=== PATIENT | male | born 1965 | race Caucasian/White ===

== ENCOUNTER → 2017-08-30 | Outpatient (REF) | payer OTHER | LOC: M SFHCLERA 09:56 | DX: J02.9 Acute pharyngitis, unspecified (principal) ==

== ENCOUNTER → 2018-05-29 | Outpatient (CLI) | payer OTHER | LOC: M ONCR 08:40 | DX: C20 Malignant neoplasm of rectum (principal) | CPT/HCPCS: G0463 ==

== ENCOUNTER 2018-06-04 13:38 | Outpatient (RCR) | payer OTHER ==
[2018-06-12 08:25] LABS: HEMATOCRIT 25.9 % (42.0-52.0); HEMOGLOBIN 7.4 g/dl (13.5-17.5); MEAN CORPUSCULAR HGB CONC 28.6 g/dl (32.0-36.5); MEAN CORPUSCULAR VOLUME 84.1 fl (80.0-96.0); PLATELET COUNT, AUTOMATED 417 10^3/uL (150-450); RED BLOOD COUNT 3.08 10^6/uL (4.30-6.10); RED CELL DISTRIBUTION WIDTH 24.3 % (11.5-14.5); WHITE BLOOD COUNT 4.9 10^3/uL (4.0-10.0)
[2018-06-12 13:04] LABS: IMMEDIATE SPIN CROSSMATCH 1 2
== END 2018-06-22 ==
LOC: M ONCR 13:38
DX: C20 Malignant neoplasm of rectum (principal)
CPT/HCPCS: 77300

== ENCOUNTER → 2018-06-12 | Outpatient (CLI) | payer OTHER ==
[~2018-06-12] MED LIST: ACETAMINOPHEN TAB 650MG DOSE (2X325MG) PO SCH; ASPI-156 PO; ATOR40TA75 PO; FERR140T2 PO; FERR1TAB8 PO; FOLI800C PO; METO1TAB87 PO; NITR0.4S14 PO; PANT40TA3 PO; PLAV1TAB2 PO; SENN-23 PO; SILV40CR EXT; diphenhydrAMINE 25 MG CAP PO SCH
== END ==
LOC: M OPP 11:48
PROVIDERS: ATTEND Internal Medicine Medical Oncology
DX: C20 Malignant neoplasm of rectum (principal); D63.8 Anemia in other chronic diseases classified elsewhere
CPT/HCPCS: 36430; P9016

== ENCOUNTER 2018-07-13 07:59 | Outpatient (RCR) | payer OTHER ==
[2018-06-26 08:08] LABS: HEMATOCRIT 34.4 % (37.0-51.0); HEMOGLOBIN 10.7 g/dl (12.0-18.0); LYMPH % 17.2 % (10.0-58.5); MEAN CORPUSCULAR HEMOGLOBIN 26.2 pg (26.0-32.0); MEAN CORPUSCULAR HGB CONC 31.1 g/dl (31.0-36.0); NEUTROPHILS # 3.5 10^3/uL (2.0-7.8); NEUTROPHILS % 74.8 % (37.0-92.0); RED BLOOD COUNT 4.09 10^6/uL (4.2-6.3); WHITE BLOOD COUNT 4.7 10^3/uL (4.1-10.9)
--- NOTE | 2018-06-26 13:56 | RADONC ---
RADIATION ONCOLOGY PROGRESS NOTE DATE: 06/25/2018 CHART NUMBER: [id number] PROGRESS NOTE: Mr. Palm is presently a dose of 1980 cGy to his pelvis and is tolerating his treatments quite well at this point with no significant difficulties related to his radiation therapy other than some perianal discomfort. REVIEW OF SYSTEMS: The patient's review of systems is positive for perianal discomfort but is otherwise noncontributory. Denies nausea, vomiting, fevers, chills, night sweats, diplopia, headaches, anxiety or depression, anorexia, weight loss, visual disturbances, chest pain, urinary or bowel difficulties, bone pain, or neurological problems. PHYSICAL EXAMINATION: The patient's skin is in excellent condition with no evidence of moist or dry desquamation. The remainder of his physical exam remains unchanged. Mr. Palm is tolerating treatments quite well and radiation will continue as scheduled.
--- NOTE | 2018-07-03 10:15 | RADONC ---
RADIATION ONCOLOGY PROGRESS NOTE DATE: 07/03/2018 CHART NUMBER: [id number] Mr. Palm is presently at a dose of 2880 cGy to his pelvis and is tolerating his treatments with some difficulty of perianal discomfort. The patient's review of systems is positive for perianal discomfort but is otherwise noncontributory. He denies nausea, vomiting, fevers, chills, night sweats, diplopia, headaches, anxiety or depression, anorexia, weight loss, visual disturbances, chest pain, urinary or bowel difficulties, bone pain, or neurological problems. PHYSICAL EXAMINATION: The patient's skin overall is in good condition. There is a small area of desquamation along the patient's anus. The remainder of his physical exam remains unchanged. I have given the patient skin care instructions and radiation will continue as scheduled.
--- NOTE | 2018-07-09 15:16 | RADONC ---
RADIATION ONCOLOGY PROGRESS NOTE DATE: 07/09/2018 CHART NUMBER: [id number] Mr. Palm is presently at a dose of 3780 cGy to his pelvis and continues to tolerate treatments with pain and discomfort in the perianal area. He reports that this is no worse than last week. The patient's review of systems is positive for perianal and rectal pain but is otherwise noncontributory. The patient's review of systems is noncontributory. Denies nausea, vomiting, fevers, chills, night sweats, diplopia, headaches, anxiety or depression, anorexia, weight loss, visual disturbances, chest pain, urinary or bowel difficulties, bone pain, or neurological problems. PHYSICAL EXAMINATION The patient's skin overall is in generally good condition except just in the perianal region, which has some desquamation. The remainder of his physical exam remains unchanged. Mr. Palm is continuing to complain of discomfort but only has four fractions of radiation left and wishes to complete therapy as prescribed. We therefore will continue with radiation at this point.
[2018-07-10 08:12] LABS: HEMATOCRIT 37.4 % (42.0-52.0); HEMOGLOBIN 11.2 g/dl (13.5-17.5); MEAN CORPUSCULAR HEMOGLOBIN 25.5 pg (27.0-33.0); MEAN CORPUSCULAR HGB CONC 29.9 g/dl (32.0-36.5); MEAN CORPUSCULAR VOLUME 85.2 fl (80.0-96.0); PLATELET COUNT, AUTOMATED 300 10^3/uL (150-450); RED BLOOD COUNT 4.39 10^6/uL (4.30-6.10); WHITE BLOOD COUNT 4.5 10^3/uL (4.0-10.0)
[~2018-07-13 07:59] MED LIST changes: -ACETAMINOPHEN TAB 650MG DOSE (2X325MG) PO SCH; -FOLI800C PO; -diphenhydrAMINE 25 MG CAP PO SCH
--- NOTE | 2018-07-19 10:21 | RADONC ---
RADIATION ONCOLOGY TREATMENT SUMMARY: DATE: 07/13/2018 DIAGNOSIS: Rectal cancer. STAGE: III A, cT1/2, N1, M0. ECOG PERFORMANCE STATUS: 0 Mr. Palm is a very pleasant 53-year-old white male with the diagnosis of what appears to be a clinical stage III A, CT 1/2, N1, M0 moderately differentiated adenocarcinoma rectum who presented to us for consideration of preoperative chemotherapy and radiation as a therapeutic option. We treated the patient to his rectum for a dose of 4500 cGy delivered in 25 fractions of 180 cGy each over 36 elapsed days from 06/07/2018 to 07/13/2018. The patient's rectum was treated on the linear accelerator utilizing a 15 MV photon beam via 3D conformal technique with PA, right and left lateral zuniga. Mr. Palm tolerated his treatments quite well with no significant difficulties related to his radiation therapy other than some tenderness in the perianal area. I have scheduled the patient to see me again in 1 month for further followup. He will also continue to be followed by his other physicians as well. Thank you for allowing us to participate in the care of this very pleasant gentleman. If I could be of any further assistance or provide you with any information, please feel free to contact me anytime. As always warm regards, cc: Ella Samaniego MD, FACP MD Shelton Harmon Bem, MD
--- NOTE | 2018-07-19 11:04 | RADONC ---
RADIATION ONCOLOGY PROGRESS NOTE DATE: 07/13/2018 CHART NUMBER: [id number] DIAGNOSIS: Rectal cancer. PROGRESS NOTE: I called Mr. Palm today just to confirm that he does have an appointment with his colorectal surgeon. He told me he is scheduled to see him in July for further evaluation and scheduling of his rectal surgery.
--- NOTE | 2018-07-19 14:15 | MEDONC ---
REVIEW PATIENT FOLLOWUP DATE OF SERVICE: 07/13/2018 DICTATION CUT OFF AT THIS POINT............ Incomplete DD: Ella Samaniego MD, FACP 07/13/2018 03:06 P DT: mark anthony 07/19/2018 02:12 P CC:
== END 2018-07-23 23:59 | disposition home or self-care (01) ==
LOC: M ONCR 07:59
PROVIDERS: ATTEND Radiology Radiation Oncology
DX: C20 Malignant neoplasm of rectum (principal)

== ENCOUNTER 2018-07-25 07:53 | Outpatient (RCR) | payer OTHER ==
[2018-07-25 08:20] LABS: HEMATOCRIT 37.5 % (42.0-52.0); HEMOGLOBIN 11.5 g/dl (13.5-17.5); LYMPH % 16.7 % (24.0-44.0); MEAN CORPUSCULAR HGB CONC 30.7 g/dl (32.0-36.5); MEAN CORPUSCULAR VOLUME 84.7 fl (80.0-96.0); NEUTROPHILS # 3.4 10^3/uL (1.8-7.7); NEUTROPHILS % 73.3 % (36.0-66.0); RED BLOOD COUNT 4.43 10^6/uL (4.30-6.10); WHITE BLOOD COUNT 4.7 10^3/uL (4.0-10.0)
[2018-07-26] MEDS ORDERED: FOLI800C PO (16:36)
== END 2018-08-23 ==
LOC: M ONCR 07:53
PROVIDERS: ATTEND Radiology Radiation Oncology
DX: C20 Malignant neoplasm of rectum (principal)

== ENCOUNTER → 2023-02-09 | Outpatient (CLI) | payer OTHER ==
[~2023-02-09] MED LIST changes: -ASPI-156 PO; +ASPI81TA28 PO; +ATRO1DRO PO; +CARB20TA PO; +CLOP75TA99 PO; +DEXA2TA PO; +FOLI800C PO; +GABA-283 PO; +HYDR2TAB2 PO; +HYOS125TA SL; +LISI2.5T9 PO; +LORA2CON5 PO; +MORP-69 PO; +ONDA8TAB8 PO; +OXYC20TA40 PO; +PANT40TA29 PO; -PANT40TA3 PO; -PLAV1TAB2 PO
== END ==
LOC: M PAL 13:45
PROVIDERS: ATTEND Nurse Practitioner Adult Health
DX: C20 Malignant neoplasm of rectum (principal); C78.7 Secondary malignant neoplasm of liver and intrahepatic bile duct; C77.0 Secondary and unspecified malignant neoplasm of lymph nodes of head, face and neck; G62.0 Drug-induced polyneuropathy; R53.1 Weakness; Z51.5 Encounter for palliative care; G89.3 Neoplasm related pain (acute) (chronic); Z79.891 Long term (current) use of opiate analgesic; R63.0 Anorexia; R11.0 Nausea; Z93.3 Colostomy status; Z74.1 Need for assistance with personal care; Z66 Do not resuscitate; Z80.8 Family history of malignant neoplasm of other organs or systems; F17.210 Nicotine dependence, cigarettes, uncomplicated; Z79.899 Other long term (current) drug therapy